=== PATIENT | female | born 1960 | race Caucasian/White ===

== ENCOUNTER → 2023-08-26 11:44 | Outpatient (BNVA) | payer OTHER, SELFPAY | PROVIDERS: PCP Nurse Practitioner Family; Visit Provider Internal Medicine | DX: E07.9 Disorder of thyroid, unspecified (principal) | CPT/HCPCS: 36415; 83516; 84439; 84443; 84480 ==

== ENCOUNTER 2023-10-19 12:45 | Outpatient (CLI) | payer OTHER, SELFPAY ==
[2023-10-19 14:28] LABS: Free T4 Free Thyroxine 0.88 ng/dL (0.82-1.77); Thyroid Stimulating Hormone 0.09 uIU/mL (0.27-4.20)
[2023-10-20 10:59] LABS: T3 Total 91 ng/dL (76-181)
== END 2023-10-19 12:46 | disposition home or self-care (01) ==
LOC: LAB 12:46
PROVIDERS: PCP Nurse Practitioner Family; Visit Provider Internal Medicine
DX: E07.9 Disorder of thyroid, unspecified (principal)
CPT/HCPCS: 36415; 84439; 84443; 84480

== ENCOUNTER 2023-12-07 09:35 | Outpatient (CLI) | payer OTHER, SELFPAY ==
[2023-12-07 10:57] LABS: Free T4 Free Thyroxine 0.81 ng/dL (0.82-1.77)
[2023-12-09 04:29] LABS: T3 Total 83 ng/dL (76-181)
== END 2023-12-07 09:36 | disposition home or self-care (01) ==
LOC: LAB 09:37
PROVIDERS: PCP Family Medicine; Visit Provider Internal Medicine
DX: E05.90 Thyrotoxicosis, unspecified without thyrotoxic crisis or storm (principal); E04.2 Nontoxic multinodular goiter; E06.3 Autoimmune thyroiditis
CPT/HCPCS: 36415; 84439; 84443; 84480

== ENCOUNTER 2023-12-07 13:43 | Outpatient (CLI) | payer OTHER, SELFPAY ==
--- NOTE | 2023-12-07 14:00 | XR_ITS ---
WS: [id number] DEXA (DUAL ENERGY X-RAY ABSORPTIOMETRY) Bone mineral density was performed using a Lydia machine. HISTORY: osteoporosis screening COMPARISON: None available. Lumbar spine BMD (L1-L4): 1.153 g/cm2 T score: -0.2 Z score: 1.1 Total hip BMD: Left: 0.825 g/cm2. T score: -1.4 Z score: -0.4 Right: 0.866 g/cm2. T score: -1.1 Z score: -0.1 10 year probability of a major osteoporotic fracture is 10.1%. XR/XR DEXA axial skeleton* [id number] IMPRESSION: OSTEOPENIA based upon the WHO classification for females.
== END 2023-12-07 13:44 | disposition home or self-care (01) ==
LOC: RAD 13:43
PROVIDERS: PCP Family Medicine; Visit Provider Internal Medicine
DX: Z13.820 Encounter for screening for osteoporosis (principal); M85.88 Other specified disorders of bone density and structure, other site
CPT/HCPCS: 77080

== ENCOUNTER → 2023-12-21 10:46 | Outpatient (BNVA) | payer OTHER, SELFPAY | PROVIDERS: PCP Family Medicine; Visit Provider Nurse Practitioner Family | DX: E05.90 Thyrotoxicosis, unspecified without thyrotoxic crisis or storm (principal); E04.2 Nontoxic multinodular goiter; E06.3 Autoimmune thyroiditis | CPT/HCPCS: 84439 ==

== ENCOUNTER 2024-03-08 09:24 | Outpatient (CLI) | payer OTHER, SELFPAY ==
[2024-03-08 10:16] LABS: Free T4 Free Thyroxine 1.09 ng/dL (0.82-1.77); Thyroid Stimulating Hormone 1.74 uIU/mL (0.27-4.20)
[2024-03-09 11:09] LABS: T3 Total 100 ng/dL (76-181)
== END 2024-03-08 09:25 | disposition home or self-care (01) ==
LOC: LAB 09:26
PROVIDERS: PCP Family Medicine; Visit Provider Internal Medicine
DX: E06.3 Autoimmune thyroiditis (principal); E05.90 Thyrotoxicosis, unspecified without thyrotoxic crisis or storm
CPT/HCPCS: 84439; 84443; 84480

== ENCOUNTER 2024-07-26 12:56 | Outpatient (CLI) | payer MEDICARE, BC, SELFPAY ==
--- NOTE | 2024-07-26 13:15 | USR_ITS ---
PROCEDURE INFORMATION: Exam: US Soft Tissue Head and Neck, Thyroid Exam date and time: 07/26/2024 1:05 PM Age: 64 years old Clinical indication: Condition or disease; Thyroid disorder; Other: Nodule; Additional info: Thyroid nodules TECHNIQUE: Imaging protocol: Real-time ultrasound scan of the neck with image documentation. Exam focused on the thyroid. COMPARISON: No relevant prior studies available. FINDINGS: Right thyroid lobe: The right thyroid lobe measures 4.6 x 2.7 x 1.9 cm. There is a rounded, somewhat hyperechoic nodule measuring 2.3 cm in diameter within the midportion of the lobe. The nodule demonstrates a poorly defined border in some areas. Left thyroid lobe: The left thyroid lobe measures 3.6 x 2 x 1.2 cm. There is a 7 mm simple cyst present. Isthmus: No nodules. US/US thyroid [id number] IMPRESSION: 2.3 cm right thyroid nodule. This nodule is somewhat suspicious for neoplasm and biopsy is recommended
[2024-07-26 14:24] LABS: Free T4 Free Thyroxine 0.87 ng/dL (0.82-1.77); Thyroid Stimulating Hormone 6.76 uIU/mL (0.27-4.20)
[2024-07-27 08:19] LABS: T3 Total 91 ng/dL (76-181)
== END 2024-07-26 12:57 | disposition home or self-care (01) ==
PROVIDERS: PCP Family Medicine; Visit Provider Internal Medicine
DX: E04.2 Nontoxic multinodular goiter (principal); E05.90 Thyrotoxicosis, unspecified without thyrotoxic crisis or storm
CPT/HCPCS: 76536; 84439; 84443; 84480

== ENCOUNTER 2024-08-11 08:42 | Outpatient (CLI) | payer MEDICARE, BC, SELFPAY ==
--- NOTE | 2024-08-11 09:45 | US_ITS ---
WS: [id number] ULTRASOUND-GUIDED RIGHT THYROID NODULE FNA HISTORY: E04.2 - Nontoxic multinodular goiter Procedure, risks, and complications were explained to the patient. Consent has been obtained. Prior imaging studies are reviewed. The skin is cleansed with ChloraPrep and anesthetized with 1% buffered lidocaine. FNA performed with 25 gauge needles. electroneurodiagnostic technologist is present to fix slides. US/US biopsy/FNA thyroid [id number] IMPRESSION: Uncomplicated FNA of a RIGHT thyroid nodule. Final pathology results pending.
== END 2024-08-11 08:43 | disposition home or self-care (01) ==
LOC: RAD 08:43
PROVIDERS: PCP Family Medicine; Visit Provider Internal Medicine
DX: E04.2 Nontoxic multinodular goiter (principal)
CPT/HCPCS: 10005; 88173

== ENCOUNTER 2024-09-11 09:31 | Outpatient (CLI) | payer MEDICARE, BC, SELFPAY ==
[2024-09-11 10:12] LABS: Free T4 Free Thyroxine 1.06 ng/dL (0.82-1.77); Thyroid Stimulating Hormone 2.92 uIU/mL (0.27-4.20)
== END 2024-09-11 09:32 | disposition home or self-care (01) ==
LOC: LAB 09:33
PROVIDERS: PCP Family Medicine; Visit Provider Internal Medicine
DX: E05.90 Thyrotoxicosis, unspecified without thyrotoxic crisis or storm (principal); E04.2 Nontoxic multinodular goiter; E06.3 Autoimmune thyroiditis; Z13.820 Encounter for screening for osteoporosis; R23.2 Flushing; R45.86 Emotional lability
CPT/HCPCS: 36415; 84439; 84443; 99214

== ENCOUNTER → 2024-10-23 09:19 | Outpatient (BNVA) | payer MEDICARE, BC, SELFPAY | PROVIDERS: PCP Family Medicine; Visit Provider Internal Medicine | DX: E04.2 Nontoxic multinodular goiter (principal); E05.90 Thyrotoxicosis, unspecified without thyrotoxic crisis or storm; E06.3 Autoimmune thyroiditis | CPT/HCPCS: 84439; 84443; 84480 ==

== ENCOUNTER 2025-03-14 08:38 | Outpatient (CLI) | payer MEDICARE, BC, SELFPAY ==
[2025-03-14 10:40] LABS: Free T4 Free Thyroxine 1.10 ng/dL (0.82-1.77); Thyroid Stimulating Hormone 2.32 uIU/mL (0.27-4.20)
== END 2025-03-14 08:39 | disposition home or self-care (01) ==
PROVIDERS: PCP Family Medicine; Visit Provider Internal Medicine
DX: E05.90 Thyrotoxicosis, unspecified without thyrotoxic crisis or storm (principal); E04.2 Nontoxic multinodular goiter; E06.3 Autoimmune thyroiditis
CPT/HCPCS: 36415; 84439; 84443; 84480